=== PATIENT | female | born 1955 | race Caucasian/White ===

== ENCOUNTER → 2017-10-18 | Outpatient (CLI) | payer BC ==
--- NOTE | 2017-10-18 21:09 | CT ---
EXAMINATION TYPE: CT abdomen pelvis wo/w con DATE OF EXAM: 10/18/2017 HISTORY: Colon mass. Recent colonscopy CT DLP: 2357.7mGycm Automated Exposure Control for Dose Reduction was Utilized. CONTRAST: CT scan of the abdomen and pelvis is performed without and with IV Contrast, patient injected with 10 0 mL of Isovue 300. COMPARISON: None. FINDINGS: LUNG BASES: There is minimal bibasilar subsegmental atelectasis. LIVER/GB: Liver enhances homogeneously without appreciable mass or intrahepatic biliary ductal dilata tion. No cholelithiasis.. PANCREAS: No significant abnormality is seen. No ductal dilatation is seen within the pancreas. SPLEEN: No significant abnormality is seen. Small splenule seen adjacent to the lumbee spleen. ADRENALS: Adrenal glands are symmetric without nodularity or thickening. KIDNEYS: Kidneys enhance and excrete symmetrically without hydronephrosis or focal mass. BOWEL: Within the splenic flexure there is focal bowel wall thickening and hyperemia with pericolonic fat stranding and engorgement of the vasa recta. Additionally there is an abnormal 7 mm lymph node o n series 5 image 30. Evaluation of the bowel somewhat limited given lack of oral contrast. Moderate a mount retained colonic stool is seen throughout the remainder the proximal bowel. Distal colon includ ing the descending colon and sigmoid colon are decompressed. No proximal dilatation to suggest obstru ction. No current evidence of pneumoperitoneum. Appendix is air-filled and within normal limits. No s mall bowel dilatation. UTERUS/ADNEXA: No gross abnormality seen. LYMPH NODES: No greater than 1cm abdominal or pelvic lymph nodes are appreciated. An 7 mm abnormal ly mph node adjacent to the splenic flexure as described above. OSSEOUS STRUCTURES: Vertebral body hemangiomas are seen at T12, L2 and L3. Probable bone islands are seen within the left iliac wing and sacrum that are subcentimeter sclerotic foci in series 5 image 67 . Additional probable bone island within the right superior acetabulum is seen in series 5 image 80. Lastly probable sclerotic punctate bone island is seen within the superior endplate of L2. OTHER: Moderate calcific atheromatous changes are seen in the abdominal aorta and its branches. Very small fat filled left inguinal hernia is noted.. IMPRESSION: 1. Focal bowel wall thickening and pericolonic inflammatory change at the splenic flexure with distal colonic decompression. This site is presumed to represent the patient's primary neoplasm. There is n o proximal obstruction. Suspicious adjacent 7 mm prominent lymph node is seen. Otherwise there is no evidence of visceral metastasis. 2. Multiple punctate sclerotic foci likely represent benign bone islands. If any prior imaging is sadie ilable at an outside institution for comparison of stability addendum could be performed.
== END ==
LOC: RADCTMAIN 17:50
PROVIDERS: ATTEND Family Medicine
DX: R19.09 Other intra-abdominal and pelvic swelling, mass and lump (principal)
CPT/HCPCS: 74178; Q9967

== ENCOUNTER → 2018-01-17 | Outpatient (CLI) | payer BC ==
--- NOTE | 2018-01-17 16:09 | US ---
EXAMINATION TYPE: US venous doppler duplex LE LT DATE OF EXAM: 01/17/2018 3:45 PM COMPARISON: NONE CLINICAL HISTORY: 62-year-old female Left lower extremity swelling R22.42; on chemotherapy SIDE PERFORMED: left TECHNIQUE: The lower extremity deep venous system is examined utilizing real time linear array sonog ann with graded compression, doppler sonography and color-flow sonography. FINDINGS: VESSELS IMAGED: Common Femoral Vein Deep Femoral Vein Greater Saphenous Vein * Femoral Vein Popliteal Vein Small Saphenous Vein * Proximal Calf Veins (* superficial vessels) Left Leg: Negative for DVT Tech findings called to Postpartum Nurse at Dr Morrow's Office at exam's end.JJ IMPRESSION: No evidence for DVT within the left lower extremity imaged from the groin into the upper calf. Target ed scanning along the anterior thigh shows no discrete abnormality of the superficial tissues.
== END | disposition home or self-care (01) ==
LOC: RADUSWWP 15:22
PROVIDERS: ATTEND Internal Medicine Hematology & Oncology
DX: R22.42 Localized swelling, mass and lump, left lower limb (principal)

== ENCOUNTER → 2018-04-24 | Outpatient (CLI) | payer BC ==
--- NOTE | 2018-04-24 16:41 | MR ---
EXAMINATION TYPE: MR brain wo/w con DATE OF EXAM: 04/24/2018 COMPARISON: HISTORY: SALAS,Dizziness, vision changes CONTRAST: Performed utilizing 7.5 mL intravenous Gadavist gadolinium contrast. TECHNIQUE: Multiplanar, multiecho imaging on a 3.0 Cha magnet is performed through the brain. Stud y is performed within 24 hours of arrival to the hospital. The craniovertebral junction is normal. The pituitary is normal. Diffusion-weighted imaging is performed. No abnormal hyperintensity is present to suggest an acute i ntracranial infarct or acute ischemic change. Periventricular white matter hyperintensity is present on T2 and inversion recovery weighted sequence s. Findings are nonspecific but likely related to chronic white matter ischemic type changes. No abno rmal enhancement is evident. No corresponding abnormality on diffusion is evident through these regio ns. This would suggest the white matter changes or old.. Ventricles and sulci are appropriate for the patient age. There is some mild mucosal thickening throu gh the ethmoid air cells. IMPRESSIONS: 1. Chronic white matter ischemic type changes.
== END | disposition home or self-care (01) ==
LOC: RADMRIMAIN 10:35
PROVIDERS: ATTEND Internal Medicine Hematology & Oncology
DX: I67.82 Cerebral ischemia (principal)
CPT/HCPCS: 70553; A9585

== ENCOUNTER → 2018-05-27 | Outpatient (CLI) | payer BC ==
[2018-05-27 16:11] LABS: Blood Urea Nitrogen 11 mg/dL (7-17)
--- NOTE | 2018-05-28 10:54 | CT ---
EXAMINATION TYPE: CT ChestAbdPelvis w con DATE OF EXAM: 05/27/2018 INDICATION: Follow up for colon cancer. COMPARISON: 10/18/2017 CT DLP: 1918 mGycm CONTRAST: Performed with Oral Contrast and with IV Contrast, patient injected with 100ml mL of Isovue M300. TECHNIQUE: Axial images at 5 mm thick sections. Reconstructed images in the coronal plane. Delayed images through the kidneys. FINDINGS: CT CHEST: Thyroid is enlarged and contains several hypodense areas. This could be evaluated with ultrasound. No suspicious lung nodules or focal infiltrates are present. Multiple small shotty lymph nodes are pr esent. No enlarged mediastinal or hilar adenopathy is evident. The ascending aorta diameter at the level of the main pulmonary artery is 3.3 cm. The main pulmonary artery diameter at the bifurcation is 2.[address] ABDOMEN: Liver: There is mild fatty infiltration liver. No discrete masses or cysts are evident. Spleen: Spleen is slightly enlarged at 12.8 cm. Normal less than 12.5 cm. Small splenule medial to th e posterior spleen. Pancreas: Normal Adrenal glands: The adrenal glands are normal. Gallbladder: Normal Kidneys: No masses are evident. No hydronephrosis is present. No cysts are present. Delayed images were obtained through the kidneys, which remain unremarkable. Aorta: Vascular calcification is within the aorta. Inferior vena cava: Normal. CT PELVIS: Loops of bowel within the abdomen and pelvis are normal. There are loops of bowel which are incom pletely distended or lack oral contrast limiting their evaluation. Fecal debris is within the colon. Appendix: Normal as visualized. Urinary bladder: Partially decompressed with some limitation on evaluation. Genitourinary structures: Uterus is unremarkable. Adnexal regions are clear. No free fluid is within the pelvis. Osseous structures: No suspicious lytic or sclerotic lesions. IMPRESSIONS: 1. Mild splenomegaly. 2. Multinodular goiter. This could be further evaluated with ultrasound. 3. Mild fatty infiltration liver. 4. No suspicious changes to suggest recurrent or metastatic colon cancer.
== END | disposition home or self-care (01) ==
LOC: RADCTMAIN 15:35
PROVIDERS: ATTEND Internal Medicine Hematology & Oncology
DX: C18.6 Malignant neoplasm of descending colon (principal); R16.1 Splenomegaly, not elsewhere classified; E04.2 Nontoxic multinodular goiter
CPT/HCPCS: 82565; 84520; 71260; 74177; 36415; Q9967

== ENCOUNTER → 2018-08-20 | Outpatient (CLI) | payer BC ==
--- NOTE | 2018-08-20 11:46 | CT ---
EXAMINATION TYPE: CT ChestAbdPelvis w con DATE OF EXAM: 08/20/2018 COMPARISON: Prior CTs May 27, [address] October 18, 2017. HISTORY: Cancer of Descending Colon progress study. Completed chemotherapy May 2019. CT DLP: 1851 mGycm. Automated Exposure Control for Dose Reduction was Utilized. CONTRAST: CT scan of the thorax, abdomen and pelvis is performed with oral and with IV Contrast, patient inject ed with 100 mL of Isovue 300. FINDINGS: LUNGS: Bilateral infrahilar groundglass opacity remains present. No suspicious nodules or masses are identified. No pleural effusion or pneumothorax is seen. MEDIASTINUM: There are no greater than 1 cm hilar or mediastinal lymph nodes. No pericardial effusi on is seen. Cardiac silhouette size is stable and mildly enlarged. Thyroid gland remains prominent a nd heterogeneous with several small nodules redemonstrated. Coronary artery calcification is redemons trated which is noted marked for underlying coronary artery disease. OTHER: There is stable right subclavian Mediport catheter. LIVER/GB: Liver remains hypodense relative to spleen suggesting mild diffuse fatty infiltration. PANCREAS: No significant abnormality is seen. SPLEEN: Spleen is mildly enlarged at 14.2 cm long axis axial image 51 perhaps slightly larger from pr ior studies.. ADRENALS: No significant abnormality is seen. KIDNEYS: No significant abnormality is seen. BOWEL: Evaluation bowel is suboptimal as enteric contrast only reaches proximal ileal level in the ri ght abdomen. There is no suspicious small or large bowel dilatation. There is slight redundancy of th e sigmoid colon redemonstrated. Surgical sutures near level of splenic flexure are again seen. GENITAL ORGANS: Anteverted uterus extends to right of midline. Both ovaries are normal in size LYMPH NODES: No greater than 1cm abdominal or pelvic lymph nodes are appreciated. OSSEOUS STRUCTURES: There is suspected hemangioma right L2 level coronal image 51 felt stable. There is mild multilevel spurring in the thoracic spine redemonstrated. OTHER: No significant additional abnormality is seen. IMPRESSION: 1. No suspicious new masses or adenopathy to suggest neoplastic recurrence. 2. Redemonstration of mild cardiomegaly with mild central alveolar edema. Correlate for CHF exacerba tion. Edema related to treatment changes in differential. 3. Slightly more prominent splenomegaly noted and may reflect product of treatment.
== END | disposition home or self-care (01) ==
LOC: RADCTMAIN 07:47
PROVIDERS: ATTEND Internal Medicine Hematology & Oncology
DX: C18.6 Malignant neoplasm of descending colon (principal); I51.7 Cardiomegaly; I50.1 Left ventricular failure, unspecified; R16.1 Splenomegaly, not elsewhere classified; Z91.040 Latex allergy status
CPT/HCPCS: 71260; 74177; Q9967

== ENCOUNTER 2018-09-02 00:31 | Inpatient (IN) | payer BC ==
[2018-09-02 00:56] LABS: Glucose,Whole Blood 535 mg/dL (75-99)
[2018-09-02] MEDS ORDERED: SODIUM CHLORIDE 0.9% 1,000 ML IV ONE ×2 (01:19→01:29)
[2018-09-02] MEDS ORDERED: INSULIN REGULAR 100 UNIT/ML VIAL IV STA (01:19)
[2018-09-02 01:36] LABS: Basophils % (A) 1 %; Eosinophils # (A) 0.1 k/uL (0-0.7); Eosinophils % (A) 2 %; HCT 34.9 % (34.0-46.0); HGB 11.1 gm/dL (11.4-16.0); Hypochromasia Slight; Lymphocytes % (A) 21 %; MCH 28.7 pg (25.0-35.0); MCHC 31.7 g/dL (31.0-37.0); MCV 90.4 fL (80.0-100.0); Mean Platelet Volume 7.7; Monocytes # (A) 0.3 k/uL (0-1.0); Monocytes % (A) 6 %; Neutrophils # (A) 3.3 k/uL (1.3-7.7); Neutrophils % (A) 69 %; Platelet Count 126 k/uL (150-450); RBC 3.86 m/uL (3.80-5.40); RDW 15.3 % (11.5-15.5); WBC 4.8 k/uL (3.8-10.6)
--- NOTE | 2018-09-02 01:38 | XR ---
EXAM: XR Chest, 1 View CLINICAL HISTORY: altered mental status TECHNIQUE: Frontal view of the chest. COMPARISON: No relevant prior studies available. FINDINGS: Lungs: Mild diffuse interstitial opacities in both lungs which are underinflated. Pleural space: Unremarkable. No pneumothorax. Heart: Unremarkable. No cardiomegaly. Mediastinum: Unremarkable. Bones/joints: Unremarkable. Tubes, lines and devices: Tip of right MediPort projects over the region of superior vena cava at the level of the daniella. IMPRESSION: Lung findings can be due to underinflation versus mild pulmonary edema.
[2018-09-02 01:46] LABS: ALT 38 U/L (9-52); AST 29 U/L (14-36); Albumin 3.2 g/dL (3.5-5.0); Alkaline Phosphatase 167 U/L (38-126); Anion Gap 7 mmol/L; Blood Urea Nitrogen 16 mg/dL (7-17); Calcium 8.8 mg/dL (8.4-10.2); Carbon Dioxide 25 mmol/L (22-30); Chloride 107 mmol/L (98-107); Potassium 3.5 mmol/L (3.5-5.1); Sodium 139 mmol/L (137-145); Total Bilirubin 0.7 mg/dL (0.2-1.3); Total Protein 6.1 g/dL (6.3-8.2)
[2018-09-02 01:53] LABS: Glucose 544 mg/dL (74-99)
[2018-09-02 01:54] LABS: Partial Thromboplastin Time 22.1 sec (22.0-30.0); Prothrombin Time 10.3 sec (9.0-12.0)
[2018-09-02 02:42] LABS: Glucose,Whole Blood 366 mg/dL (75-99)
[2018-09-02 03:19] LABS: Appearance,Urine Clear (Clear); Bilirubin,Urine Negative (Negative); Blood,Urine Negative (Negative); Color,Urine Light Yellow; Glucose,Urine (UA) 4+ (Negative); Ketones,Urine Negative (Negative); Leukocyte Esterase,Urine Negative (Negative); Nitrite,Urine Negative (Negative); Protein,Urine Negative (Negative); Specific Gravity,Urine 1.022 (1.001-1.035); Urobilinogen,Urine <2.0 mg/dL (<2.0)
--- NOTE | 2018-09-02 03:36 | ED ---
Weakness HPI - General Chief complaint: Weakness Stated complaint: hypoglycemia Time Seen by Provider: 09/02/18 00:55 Source: patient Mode of arrival: EMS Limitations: no limitations - History of Present Illness Initial comments: This patient is 63-year-old woman with history of lung cancer who is brought by ambulance to be evaluated for generalized weakness and fatigue. The patient has been feeling somewhat more weak and fatigue over the past couple of days but tonight she had gone to the bathroom. She then had slumped to the floor and did not have the strength to get up. Patient's family called EMS and they brought the patient here to be evaluated. She denies focal weakness stating that it's both legs as well as the arms. She denies having a fall or injury. Denies other symptoms. MD Complaint: generalized weakness Onset/Timin -: hour(s) Location: generalized Severity: severe Consistency: constant Improves with: none Worsens with: none Associated Symptoms: denies other symptoms - Related Data Home Medications Medication Instructions Recorded Confirmed Cyclobenzaprine [Flexeril] 10 mg PO HS 12/24/17 05/13/18 Docusate Sodium [Dok] 100 mg PO DIRECTED 12/24/17 05/13/18 FLUoxetine HCL [PROzac] 20 mg PO DAILY 12/24/17 05/13/18 Fenofibrate 160 mg PO DAILY 12/24/17 05/13/18 Ferrous Sulfate [Feosol] 325 mg PO DAILY 12/24/17 05/13/18 LORazepam [Ativan] 0.5 mg PO HS 12/24/17 05/13/18 Lidocaine-Prilocaine Cream [Emla 1 applic TOPICAL DAILY 12/24/17 05/13/18 Cream 2.5%/2.5%] Lisinopril [Zestril] 10 mg PO DAILY 12/24/17 05/13/18 Ondansetron [Zofran] 4 mg PO Q8HR PRN 12/24/17 05/13/18 Pravastatin Sodium 80 mg PO DAILY 12/24/17 05/13/18 Gabapentin [Neurontin] 300 mg PO BID 03/04/18 05/13/18 Lactulose 10 gm PO Q6HR PRN 03/18/18 05/13/18 Potassium Chloride [Klor-Con 20] 20 meq PO BID 04/01/18 05/13/18 Allergies Allergy/AdvReac Type Severity Reaction Status Date / Time latex Allergy Unknown Verified 09/02/18 07:29 Review of Systems ROS Statement: Those systems with pertinent positive or pertinent negative responses have been documented in the HPI. ROS Other: All systems not noted in ROS Statement are negative. Constitutional: Reports: weakness. Denies: fever, chills Respiratory: Denies: cough, dyspnea Cardiovascular: Denies: chest pain, palpitations, edema, syncope Gastrointestinal: Denies: abdominal pain, vomiting, diarrhea Genitourinary: Denies: dysuria, hematuria Musculoskeletal: Denies: back pain Skin: Denies: rash Neurological: Denies: headache, weakness, numbness Past Medical History Past Medical History: Cancer, Hyperlipidemia, Hypertension Additional Past Medical History / Comment(s): COLON CANCER History of Any Multi-Drug Resistant Organisms: None Reported Past Surgical History: Bowel Resection Additional Past Surgical History / Comment(s): COLONOSCOPY,COLON RESECTION Past Anesthesia/Blood Transfusion Reactions: No Reported Reaction Past Psychological History: Anxiety, Depression Smoking Status: Former smoker General Exam Limitations: no limitations General appearance: alert, in no apparent distress Head exam: Present: atraumatic, normocephalic Eye exam: Present: normal appearance. Absent: scleral icterus, conjunctival injection ENT exam: Present: mucous membranes dry Neck exam: Present: normal inspection, full ROM. Absent: tenderness Respiratory exam: Present: normal lung sounds bilaterally. Absent: respiratory distress, wheezes, rales, rhonchi, stridor Cardiovascular Exam: Present: regular rate, normal rhythm, normal heart sounds. Absent: systolic murmur, diastolic murmur, rubs, gallop GI/Abdominal exam: Present: soft. Absent: distended, tenderness, guarding, rebound, mass Extremities exam: Present: normal inspection, normal capillary refill. Absent: pedal edema, calf tenderness Back exam: Present: normal inspection. Absent: CVA tenderness (R), CVA tenderness (L) Neurological exam: Present: alert, oriented X3, CN II-XII intact. Absent: motor sensory deficit Skin exam: Present: warm, dry, intact, normal color. Absent: rash Course Vital Signs 09/02/18 09/02/18 09/02/18 00:36 00:37 00:40 Temperature 98.2 F Pulse Rate 90 92 Respiratory 24 16 29 H Rate Blood Pressure 148/71 148/71 O2 Sat by Pulse 94 L 94 L 97 Oximetry 09/02/18 09/02/18 09/02/18 02:50 03:10 03:40 Temperature Pulse Rate 89 87 90 Respiratory Rate Blood Pressure 179/80 165/71 158/63 O2 Sat by Pulse 96 97 95 Oximetry 09/02/18 09/02/18 09/02/18 04:10 04:40 05:30 Temperature Pulse Rate 93 93 91 Respiratory Rate Blood Pressure 152/68 156/70 O2 Sat by Pulse 95 Oximetry 09/02/18 09/02/18 05:40 06:10 Temperature 98.1 F Pulse Rate 94 89 Respiratory 16 Rate Blood Pressure 161/75 153/80 O2 Sat by Pulse Oximetry EKG Findings - EKG Results: EKG: interpreted by ERMD, sinus rhythm (Rate 88 bpm), normal axis - Blocks, [place], Hypertrophy, ST Abn: Chamber hypertrophy or enlargement: left ventricular hypertrophy or enlargement (LVE) Repolarization changes or abnormalities: Q-T interval prolongation Medical Decision Making - Medical Decision Making This patient is a 63-year-old woman with generalized weakness and fatigue. She is found to be significantly hyperglycemic and somewhat dry. Patient is given fluid and insulin. On reevaluation she does states she is feeling better and she does want to go home however the patient is still not able to support her weight. We'll admit the patient to have further therapy for hyperglycemia and for the generalized weakness. - Lab Data Result diagrams: 09/02/18 00:55 09/02/18 00:55 Lab Results 09/02/18 09/02/18 09/02/18 Range/Units 00:53 00:55 00:55 WBC 4.8 (3.8-10.6) k/uL RBC 3.86 (3.80-5.40) m/uL Hgb 11.1 L (11.4-16.0) gm/dL Hct 34.9 (34.0-46.0) % MCV 90.4 (80.0-100.0) fL MCH 28.7 (25.0-35.0) pg MCHC 31.7 (31.0-37.0) g/dL RDW 15.3 (11.5-15.5) % Plt Count 126 L (150-450) k/uL Neutrophils % 69 % Lymphocytes % 21 % Monocytes % 6 % Eosinophils % 2 % Basophils % 1 % Neutrophils # 3.3 (1.3-7.7) k/uL Lymphocytes # 1.0 (1.0-4.8) k/uL Monocytes # 0.3 (0-1.0) k/uL Eosinophils # 0.1 (0-0.7) k/uL Basophils # 0.0 (0-0.2) k/uL Hypochromasia Slight PT (9.0-12.0) sec INR (<1.2) APTT (22.0-30.0) sec Sodium (137-145) mmol/L Potassium (3.5-5.1) mmol/L Chloride (98-107) mmol/L Carbon Dioxide (22-30) mmol/L Anion Gap mmol/L BUN (7-17) mg/dL Creatinine (0.52-1.04) mg/dL Est GFR (CKD-EPI)AfAm (>60 ml/min/1.73 sqM) Est GFR (CKD-EPI)NonAf (>60 ml/min/1.73 sqM) Glucose (74-99) mg/dL POC Glucose (mg/dL) 535 H (75-99) mg/dL POC Glu Open Tenter Operator ID Frederick Marques Calcium (8.4-10.2) mg/dL Total Bilirubin (0.2-1.3) mg/dL AST (14-36) U/L ALT (9-52) U/L Alkaline Phosphatase (38-126) U/L Troponin I (0.000-0.034) ng/mL Total Protein (6.3-8.2) g/dL Albumin (3.5-5.0) g/dL Urine Color Urine Appearance (Clear) Urine pH (5.0-8.0) Ur Specific [place] (1.001-1.035) Urine Protein (Negative) Urine Glucose (UA) (Negative) Urine Ketones (Negative) Urine Blood (Negative) Urine Nitrite (Negative) Urine Bilirubin (Negative) Urine Urobilinogen (<2.0) mg/dL Ur Leukocyte Esterase (Negative) Acetone, Qual Negative (Negative) 09/02/18 09/02/18 09/02/18 Range/Units 00:55 00:55 00:55 WBC (3.8-10.6) k/uL RBC (3.80-5.40) m/uL Hgb (11.4-16.0) gm/dL Hct (34.0-46.0) % MCV (80.0-100.0) fL MCH (25.0-35.0) pg MCHC (31.0-37.0) g/dL RDW (11.5-15.5) % Plt Count (150-450) k/uL Neutrophils % % Lymphocytes % % Monocytes % % Eosinophils % % Basophils % % Neutrophils # (1.3-7.7) k/uL Lymphocytes # (1.0-4.8) k/uL Monocytes # (0-1.0) k/uL Eosinophils # (0-0.7) k/uL Basophils # (0-0.2) k/uL Hypochromasia PT 10.3 (9.0-12.0) sec INR 1.0 (<1.2) APTT 22.1 (22.0-30.0) sec Sodium 139 (137-145) mmol/L Potassium 3.5 (3.5-5.1) mmol/L Chloride 107 (98-107) mmol/L Carbon Dioxide 25 (22-30) mmol/L Anion Gap 7 mmol/L BUN 16 (7-17) mg/dL Creatinine 0.35 L (0.52-1.04) mg/dL Est GFR (CKD-EPI)AfAm >90 (>60 ml/min/1.73 sqM) Est GFR (CKD-EPI)NonAf >90 (>60 ml/min/1.73 sqM) Glucose 544 H* (74-99) mg/dL POC Glucose (mg/dL) (75-99) mg/dL POC Glu Open Tenter Operator ID Calcium 8.8 (8.4-10.2) mg/dL Total Bilirubin 0.7 (0.2-1.3) mg/dL AST 29 (14-36) U/L ALT 38 (9-52) U/L Alkaline Phosphatase 167 H (38-126) U/L Troponin I <0.012 (0.000-0.034) ng/mL Total Protein 6.1 L (6.3-8.2) g/dL Albumin 3.2 L (3.5-5.0) g/dL Urine Color Urine Appearance (Clear) Urine pH (5.0-8.0) Ur Specific [place] (1.001-1.035) Urine Protein (Negative) Urine Glucose (UA) (Negative) Urine Ketones (Negative) Urine Blood (Negative) Urine Nitrite (Negative) Urine Bilirubin (Negative) Urine Urobilinogen (<2.0) mg/dL Ur Leukocyte Esterase (Negative) Acetone, Qual (Negative) 09/02/18 09/02/18 09/02/18 Range/Units 02:40 02:59 05:57 WBC (3.8-10.6) k/uL RBC (3.80-5.40) m/uL Hgb (11.4-16.0) gm/dL Hct (34.0-46.0) % MCV (80.0-100.0) fL MCH (25.0-35.0) pg MCHC (31.0-37.0) g/dL RDW (11.5-15.5) % Plt Count (150-450) k/uL Neutrophils % % Lymphocytes % % Monocytes % % Eosinophils % % Basophils % % Neutrophils # (1.3-7.7) k/uL Lymphocytes # (1.0-4.8) k/uL Monocytes # (0-1.0) k/uL Eosinophils # (0-0.7) k/uL Basophils # (0-0.2) k/uL Hypochromasia PT (9.0-12.0) sec INR (<1.2) APTT (22.0-30.0) sec Sodium (137-145) mmol/L Potassium (3.5-5.1) mmol/L Chloride (98-107) mmol/L Carbon Dioxide (22-30) mmol/L Anion Gap mmol/L BUN (7-17) mg/dL Creatinine (0.52-1.04) mg/dL Est GFR (CKD-EPI)AfAm (>60 ml/min/1.73 sqM) Est GFR (CKD-EPI)NonAf (>60 ml/min/1.73 sqM) Glucose (74-99) mg/dL POC Glucose (mg/dL) 366 H 324 H (75-99) mg/dL POC Glu Open Tenter Operator Frederick Cherry Emily Calcium (8.4-10.2) mg/dL Total Bilirubin (0.2-1.3) mg/dL AST (14-36) U/L ALT (9-52) U/L Alkaline Phosphatase (38-126) U/L Troponin I (0.000-0.034) ng/mL Total Protein (6.3-8.2) g/dL Albumin (3.5-5.0) g/dL Urine Color Light Yellow Urine Appearance Clear (Clear) Urine pH 7.0 (5.0-8.0) Ur Specific [place] 1.022 (1.001-1.035) Urine Protein Negative (Negative) Urine Glucose (UA) 4+ H (Negative) Urine Ketones Negative (Negative) Urine Blood Negative (Negative) Urine Nitrite Negative (Negative) Urine Bilirubin Negative (Negative) Urine Urobilinogen <2.0 (<2.0) mg/dL Ur Leukocyte Esterase Negative (Negative) Acetone, Qual (Negative) Disposition Clinical Impression: Hyperglycemia, Weakness Disposition: HOME SELF-CARE Condition: Fair Is patient prescribed a controlled substance at d/c from ED?: No Referrals: Aguilar Novak MD [Primary Care Provider] - 1-2 days
[2018-09-02 05:58] LABS: Glucose,Whole Blood 324 mg/dL (75-99)
[2018-09-02] MEDS ORDERED: NALOXONE 0.4 MG/ML 1 ML VIAL IV PRN (07:22)
[2018-09-02] MEDS ORDERED: LACTULOSE 20 GM/30 ML CUP PO PRN (07:25)
[2018-09-02] MEDS ORDERED: ONDANSETRON 4 MG TAB PO PRN (07:25)
[2018-09-02 08:51] LABS: Glucose,Whole Blood 275 mg/dL (75-99)
[2018-09-02] MEDS ORDERED: DOCUSATE 100 MG CAP PO PRN (09:00)
[2018-09-02 09:52] VITALS: BMI 35.6
[2018-09-02] MEDS: SODIUM CHLORIDE 0.9% 1,000 ML IV SCH ×2 (10:14→22:32)
[2018-09-02] MEDS: FENOFIBRATE 160 MG TAB PO SCH (11:06)
[2018-09-02] MEDS: FLUoxetine HCL 20 MG CAP PO SCH (11:06)
[2018-09-02] MEDS: LISINOPRIL 10 MG TAB PO SCH (11:07)
[2018-09-02] MEDS: PRAVASTATIN SODIUM 80 MG TAB PO SCH (11:07)
[2018-09-02] MEDS: POTASSIUM CHLORIDE ER 20 MEQ TAB.ER PO SCH ×2 (11:07→21:27)
[2018-09-02] MEDS: FERROUS SULFATE 325 MG TAB PO SCH (11:07)
[2018-09-02] MEDS: GABAPENTIN 300 MG CAP PO SCH ×2 (11:13→21:27)
[2018-09-02 11:29] LABS: Glucose,Whole Blood 296 mg/dL (75-99)
[2018-09-02 17:37] LABS: Glucose,Whole Blood 407 mg/dL (75-99)
[2018-09-02 20:57] LABS: Glucose,Whole Blood 328 mg/dL (75-99)
[2018-09-02] MEDS ORDERED: metFORMIN 500 MG TAB PO SCH (21:00)
[2018-09-02] MEDS: LORazepam 0.5 MG TAB PO SCH (21:27)
[2018-09-02] MEDS ORDERED: LACTATED RINGERS 1,000 ML IV SCH (22:15)
[2018-09-02] MEDS: CYCLOBENZAPRINE 10 MG TAB PO SCH (22:33)
[2018-09-02] MEDS: ENOXAPARIN 40 MG/0.4 ML SYRINGE SQ SCH (22:34)
--- NOTE | 2018-09-02 23:54 | P.CONS ---
History of Present Illness - Reason for Consult Consult date: 09/02/18 colon cancer Requesting physician: Pop Miner - Chief Complaint Weakness and inability to stand after fall - History of Present Illness Niko is a patient of Dr. Larson treated for colon cancer. Underwent left hemicolectomy in october of 2017. Review of Systems A 14 point review of systems assessed and completed and all negative except HPI Past Medical History Past Medical History: Cancer, Diabetes Mellitus, Hyperlipidemia, Hypertension Additional Past Medical History / Comment(s): Colon cancer with surgery and chemo, diabetic-diet controlled, neuropathy bilateral hands/feet, chronic lower abdominal pain-cause unknown, frequent nausea, constipation, anemia. History of Any Multi-Drug Resistant Organisms: None Reported Past Surgical History: Bowel Resection Additional Past Surgical History / Comment(s): COLONOSCOPY,COLON RESECTION Past Anesthesia/Blood Transfusion Reactions: No Reported Reaction Smoking Status: Former smoker - Past Family History Father Family Medical History: Diabetes Mellitus Additional Family Medical History / Comment(s): Father of diabetic complications at the age of 40 yrs. Mother Family Medical History: Diabetes Mellitus Additional Family Medical History / Comment(s): Mother from gangrene/diabetes at the age of 85yrs. Medications and Allergies Home Medications Medication Instructions Recorded Confirmed Type Docusate Sodium [Dok] 100 mg PO DAILY 12/24/17 09/02/18 History FLUoxetine HCL [PROzac] 60 mg PO DAILY 12/24/17 09/02/18 History Fenofibrate 160 mg PO DAILY 12/24/17 09/02/18 History Lidocaine-Prilocaine Cream [Emla 1 applic TOPICAL DAILY PRN 12/24/17 09/02/18 History Cream 2.5%/2.5%] Pravastatin Sodium 80 mg PO DAILY 12/24/17 09/02/18 History Aspirin 81 mg PO DAILY 09/02/18 09/02/18 History Cariprazine HCl [Vraylar] 1.5 mg PO DAILY 09/02/18 09/02/18 History Acetaminophen Tab [Tylenol] 650 mg PO Q6HR PRN tab 09/05/18 Rx Ferrous Sulfate [Iron (65 MG 325 mg PO 1200 tab 09/05/18 Rx Elemental)] INSULIN ASPART (NovoLOG) [NovoLOG 0 unit SQ AC-TID vial 09/05/18 Rx (formulary)] Lisinopril-Hctz 10-12.5 mg 1 each PO BID tab 09/05/18 Rx [Zestoretic 10-12.5] Melatonin 5 mg PO HS #1 tablet 09/05/18 Rx Multivitamin [Multivitamins Adult 1 each PO DAILY #1 tablet 09/05/18 Rx Gummies] Pyridoxine [Vitamin B-6] 50 mg PO DAILY tab 09/05/18 Rx glipiZIDE [Glucotrol] 2.5 mg PO AC-BRKFST tab 09/05/18 Rx metFORMIN HCL [Glucophage] 1,000 mg PO BID #1 tab 09/05/18 Rx Allergies Allergy/AdvReac Type Severity Reaction Status Date / Time latex Allergy Unknown Verified 09/02/18 07:29 Physical Exam Vitals: Vital Signs Temp Pulse Pulse Resp BP BP Pulse Ox 09/02/18 10:55 98.4 F 80 16 159/74 94 L 09/02/18 10:12 97.9 F 86 18 159/74 98 09/02/18 08:25 97.9 F 93 18 167/93 96 09/02/18 06:10 98.1 F 89 16 153/80 09/02/18 05:40 94 161/75 09/02/18 05:30 91 09/02/18 04:40 93 156/70 09/02/18 04:10 93 152/68 95 09/02/18 03:40 90 158/63 95 09/02/18 03:10 87 165/71 97 09/02/18 02:50 89 179/80 96 09/02/18 00:40 29 H 148/71 97 09/02/18 00:37 98.2 F 92 16 148/71 94 L 09/02/18 00:36 90 24 94 L Intake and Output 09/01/18 09/02/18 09/02/18 22:59 06:59 14:59 Other: Voiding Method Incontinent Weight 97.069 kg Gen: Alert and oriented, NAD Head: NCNT Neck Supple Lungs: No increased effort, CTA Heart RRR, S1 Abdomen: Soft, no tenderness Ext: No edema: weakness. Results CBC & Chem 7: 09/02/18 00:55 09/02/18 00:55 Labs: Abnormal Lab Results - Last 24 Hours (Table) 09/02/18 09/02/18 09/02/18 Range/Units 00:53 00:55 00:55 Hgb 11.1 L (11.4-16.0) gm/dL Plt Count 126 L (150-450) k/uL Creatinine 0.35 L (0.52-1.04) mg/dL Glucose 544 H* (74-99) mg/dL POC Glucose (mg/dL) 535 H (75-99) mg/dL Alkaline Phosphatase 167 H (38-126) U/L Total Protein 6.1 L (6.3-8.2) g/dL Albumin 3.2 L (3.5-5.0) g/dL Urine Glucose (UA) (Negative) 09/02/18 09/02/18 09/02/18 Range/Units 02:40 02:59 05:57 Hgb (11.4-16.0) gm/dL Plt Count (150-450) k/uL Creatinine (0.52-1.04) mg/dL Glucose (74-99) mg/dL POC Glucose (mg/dL) 366 H 324 H (75-99) mg/dL Alkaline Phosphatase (38-126) U/L Total Protein (6.3-8.2) g/dL Albumin (3.5-5.0) g/dL Urine Glucose (UA) 4+ H (Negative) 09/02/18 09/02/18 Range/Units 08:33 11:26 Hgb (11.4-16.0) gm/dL Plt Count (150-450) k/uL Creatinine (0.52-1.04) mg/dL Glucose (74-99) mg/dL POC Glucose (mg/dL) 275 H 296 H (75-99) mg/dL Alkaline Phosphatase (38-126) U/L Total Protein (6.3-8.2) g/dL Albumin (3.5-5.0) g/dL Urine Glucose (UA) (Negative) Assessment and Plan Plan: Assessment and Recommendatins: 1. Weakness and Debility 2. Fall from Sitting, unable to stand 3. Left hand weakness: - PMR to assess patient with debility and weakness. No sensory deficit noted different from baseline. Will consider MRI if concern for recurrence or cord damage. Physcian Attest: I have completed the full history and physical and devloped the completed impression and plan, agree with above dictation, dictated as scribe
--- NOTE | 2018-09-03 00:34 | HP ---
HISTORY AND PHYSICAL DATE OF ADMISSION: 09/02/2018. PRESENTING COMPLAINT: Unwell. HISTORY OF PRESENTING COMPLAINT: This is a pleasant 62-year-old patient of Dr. Novak whose chronic stable medical conditions include hypertension, hyperlipidemia, and progressive peripheral neuropathy. The patient has had colon cancer and finished chemotherapy in May. Patient's has loss of feeling in both hands and feet, going on for 3 months. She finds it difficult to walk and sometimes she falls. Patient's appetite has been fluctuating. Sugars do run high sometimes. She takes a glucometer from a family member. She does get dizzy on standing up. She has also been losing some weight. The patient's sugar in the ER was over 500 and there was no acetone in the blood. She was admitted for the same. It is unclear from the patient why she is not taking any medication. REVIEW OF SYSTEMS: CONSTITUTIONAL: Tired, decreased appetite, weight loss. HEENT: None. RESPIRATORY: None. CARDIOVASCULAR: None. GASTROINTESTINAL: None. GENITOURINARY: None. MUSCULOSKELETAL: None. DERMATOLOGIC: None. HEMATOLOGICAL: None. NEUROLOGICAL: As above. PAST MEDICAL HISTORY: Diabetes mellitus, hypertension, hyperlipidemia, colon cancer with surgery and chemo, peripheral neuropathy, chronic low abdominal pain, nausea, constipation. PAST SURGICAL HISTORY: Bowel resection. PSYCH HISTORY: Anxiety and depression. SOCIAL HISTORY: . No alcohol. Smoked a pack a day for 37 years, stopped in 1917. No alcohol. FAMILY HISTORY: Father of diabetic complications at age of 40. HOME MEDICATIONS: 1. Pravastatin 80 mg p.o. daily. 2. Potassium 20 mEq p.o. b.i.d. 3. Zestril 10 mg a day. 4. EMLA cream 2.5 percent topical daily p.r.n. 5. Lactulose 10 g p.o. every 6 p.r.n. 6. Ativan 0.5 p.o. at bedtime. 7. Neurontin 200 mg p.o. b.i.d. 8. Flonase 2 sprays each nostril daily. 9. Bessy 180 mg p.o. daily. 10.Fenofibrate 160 mg p.o. daily. 11.Prozac 60 mg p.o. daily. 12.Colace 100 mg p.o. daily. 13.Vraylar 1.5 mg p.o. daily. 14.Aspirin 81 mg p.o. daily. ALLERGIES: LATEX. PHYSICAL EXAMINATION: VITAL SIGNS: On presentation, 98.2, pulse 72, respirations 16, blood pressure 148/71, pulse ox 94 percent on 2 L. APPEARANCE: Well built, BMI 35.6. Lying in bed, awake. EYES: Pupils equal. Conjunctivae normal. HEENT: External appearance of nose is normal. Oral cavity normal. NECK: JVD not raised. Mass not palpable. Respiratory effort normal. LUNGS: Fair air entry. CARDIOVASCULAR: First and second sounds normal. No edema. ABDOMEN: Soft, nontender. Liver and spleen not palpable. LYMPHATIC: No lymph node palpable. PSYCHIATRY: Alert and oriented x3. Mood and affect normal. NEUROLOGICAL: Pupils equal. Power and sensation grossly intact. Decreased sensation in the hands and below the knee to the feet. INVESTIGATIONS: White count 4.8, hemoglobin 11.1, potassium 3.5, BUN 16, creatinine 0.35, blood glucose was 544. Troponin less than 0.012. UA showing 4+ of glucose. Serum acetone is negative. EKG tracing personally reviewed by me shows some ST depression in inferolateral leads. Chest x-ray film personally reviewed by me, a portable film, unclear about the basis. ASSESSMENT: 1. Severe peripheral neuropathy causing poor balance and frequent falls, probably from uncontrolled diabetes. 2. Diabetes mellitus type 2, uncontrolled with hyperglycemia. 3. Hyperlipidemia. 4. Essential hypertension. 5. History of colon cancer status post chemo and surgery. 6. Diabetic peripheral neuropathy. PLAN: At this point, started the patient on metformin 500 mg 3 times a day. We will get diabetic education. Start the patient on diabetic diet. Also add glyburide 2.5 mg b.i.d. We will also get PT, OT to see what is patient's functional status. Repeat chest x-ray. Patient is already on GUSTABO inhibitor and lipid-lowering agent. Will add baby aspirin. Repeat a chest x-ray in the morning and get a 2-D echocardiogram. Expect patient to be in the hospital at least for 2 nights. MMTANYA / MARLEYN: [id number] /
[2018-09-03 02:05] LABS: Glucose,Whole Blood 212 mg/dL (75-99)
[2018-09-03 05:08] LABS: Glucose,Whole Blood 166 mg/dL (75-99)
[2018-09-03 06:59] LABS: Glucose,Whole Blood 199 mg/dL (75-99)
[2018-09-03] MEDS: metFORMIN 500 MG TAB PO SCH ×3 (07:59→17:26)
[2018-09-03] MEDS: PRAVASTATIN SODIUM 80 MG TAB PO SCH (07:59)
[2018-09-03] MEDS: POTASSIUM CHLORIDE ER 20 MEQ TAB.ER PO SCH ×2 (07:59→20:32)
[2018-09-03] MEDS: LISINOPRIL 10 MG TAB PO SCH (07:59)
[2018-09-03] MEDS: PYRIDOXINE 50 MG TAB PO SCH (07:59)
[2018-09-03] MEDS: INSULIN ASPART (NovoLOG) 100 UNIT/ML VIAL SQ SCH ×3 (07:59→17:26)
[2018-09-03] MEDS: FENOFIBRATE 160 MG TAB PO SCH (07:59)
[2018-09-03] MEDS: FLUoxetine HCL 20 MG CAP PO SCH (07:59)
--- NOTE | 2018-09-03 10:06 | XR ---
EXAMINATION TYPE: XR chest 2V DATE OF EXAM: 09/03/2018 COMPARISON: 08/20/2018 and 09/02/2018 HISTORY: Weakness TECHNIQUE: Frontal and lateral views of the chest are obtained. FINDINGS: Mild pulmonary vascular prominence unchanged from prior. No focal consolidation, pleural e ffusion or pneumothorax. Cardia mediastinal silhouette is mildly enlarged. Osseous structures are marquis ssly intact. Right-sided Mediport terminates in the superior vena cava at its distal aspect. Minimal degenerative changes of the thoracic spine are seen. IMPRESSION: There is redemonstration of similar degree of mild pulmonary vascular congestion. No foc al consolidation.
[2018-09-03 11:48] LABS: Glucose,Whole Blood 167 mg/dL (75-99)
[2018-09-03] MEDS: FERROUS SULFATE 325 MG TAB PO SCH (12:07)
--- NOTE | 2018-09-03 12:09 | ECHOF ---
Referral Reason:assess LV fn MEASUREMENTS -------- HEIGHT: 165.1 cm WEIGHT: 78.9 kg BP: RVIDd: 2.4 cm (< 3.3) IVSd: 1.4 cm (0.6 - 1.1) LVIDd: 4.5 cm (3.9 - 5.3) LVPWd: 1.6 cm (0.6 - 1.1) IVSs: 2.0 cm LVIDs: 2.1 cm LVPWs: 2.0 cm LAESV Index (A-L): 23.31 ml/m Ao Diam: 3.3 cm (2.0 - 3.7) AV Cusp: 2.0 cm (1.5 - 2.6) LA Diam: 3.8 cm (2.7 - 3.8) MV EXCURSION: 15.965 mm (> 18.000) MV EF SLOPE: 41 mm/s (70 - 150) EPSS: 0.5 cm MV E Oswaldo: 1.13 m/s MV DecT: 151 ms MV A Oswaldo: 1.54 m/s MV E/A Ratio: 0.74 AV maxP.51 mmHg AV meanP.42 mmHg RAP: 5.00 mmHg RVSP: 16.94 mmHg FINDINGS -------- Sinus rhythm. This was a technically good study. The left ventricular size is normal. There is moderate concentric left ventricular hypertrophy. O verall left ventricular systolic function is normal with, an EF between 55 - 60 %. The right ventricle is normal in size. Normal LA size by volume 22+/-6 ml/m2. The right atrial size is normal. Aortic valve is trileaflet and is mildly thickened. The mitral valve leaflets are mildly thickened. [id number] mitral regurgitation is present. Mild tricuspid regurgitation present. The right ventricular systolic pressure, as measured by Doppl er, is 16.94mmHg. There is no pulmonic regurgitation present. The aortic root size is normal. Normal inferior vena cava with normal inspiratory collapse consistent with estimated right atrial pre ssure of 5 mmHg. There is no pericardial effusion. CONCLUSIONS -------- 1. Sinus rhythm. 2. This was a technically good study. 3. The left ventricular size is normal. 4. There is moderate concentric left ventricular hypertrophy. 5. Overall left ventricular systolic function is normal with, an EF between 55 - 60 %. 6. The right ventricle is normal in size. 7. Normal LA size by volume 22+/-6 ml/m2. 8. The right atrial size is normal. 9. Aortic valve is trileaflet and is mildly thickened. 10. The mitral valve leaflets are mildly thickened. 11. Mhxj-st-dgutkjcn mitral regurgitation is present. 12. Mild tricuspid regurgitation present. 13. The right ventricular systolic pressure, as measured by Doppler, is 16.94mmHg. 14. There is no pulmonic regurgitation present. 15. The aortic root size is normal. 16. Normal inferior vena cava with normal inspiratory collapse consistent with estimated right atrial pressure of 5 mmHg. 17. There is no pericardial effusion. EDIPHONE OPERATOR: Sarita Garcia RDCS
[2018-09-03 16:56] LABS: Hemoglobin A1C 11.1 % (4.0-6.0)
[2018-09-03 17:24] LABS: Glucose,Whole Blood 209 mg/dL (75-99)
[2018-09-03] MEDS: CYCLOBENZAPRINE 10 MG TAB PO SCH (20:32)
[2018-09-03] MEDS: ENOXAPARIN 40 MG/0.4 ML SYRINGE SQ SCH (20:32)
[2018-09-03] MEDS: LORazepam 0.5 MG TAB PO SCH (20:32)
[2018-09-03] MEDS: ACETAMINOPHEN TAB 325 MG TAB PO PRN (20:33)
[2018-09-03 20:36] LABS: Glucose,Whole Blood 168 mg/dL (75-99)
[2018-09-04] MEDS: LISINOPRIL-HCTZ 10-12.5 MG 1 EACH TAB PO SCH ×3 (00:15→22:34)
[2018-09-04] MEDS: ASPIRIN 81 MG PO SCH ×2 (00:15→08:14)
[2018-09-04 02:22] LABS: Glucose,Whole Blood 163 mg/dL (75-99)
[2018-09-04 07:26] LABS: Glucose,Whole Blood 160 mg/dL (75-99)
--- NOTE | 2018-09-04 07:33 | PN ---
PROGRESS NOTE DATE OF SERVICE: 09/03/2018 PRESENTING COMPLAINT: Difficulty walking. INTERVAL HISTORY: This patient presented with nonketotic hyperglycemia and difficulty walking because of neuropathy. The patient did walk with physical therapy over 100 feet. Sugars are doing better, started on oral hypoglycemics. Care was discussed with the patient. REVIEW OF SYSTEMS: Done for constitutional, cardiovascular, GI, pulmonary; relevant findings as above. CURRENT MEDICATIONS: Current medications are reviewed that includes Prozac, Glucotrol, Glucophage. PHYSICAL EXAMINATION: On examination, temperature 98.5, pulse 88, respirations 16, blood pressure 162/71, pulse ox 92% on room air. GENERAL APPEARANCE: Lying in bed, awake. EYES: Pupils equal. Conjunctivae normal. NECK: JVD not raised. Mass not palpable. RESPIRATORY: Effort LUNGS: Clear. CARDIOVASCULAR: First and second sounds normal. No edema. ABDOMEN: Soft, nontender. Liver and spleen not palpable. PSYCHIATRY: Alert and oriented x3. Mood and affect normal. INVESTIGATIONS: Accu-Cheks 166, 199, 167. A 2-D echo shows preserved LV function and LVH. ASSESSMENT: 1. Severe peripheral neuropathy causing poor balance and frequent falls, probably from diabetes. 2. Diabetes mellitus type 2, uncontrolled with hyperglycemia. 3. Hyperlipidemia. 4. Essential hypertension. 5. History of colon cancer, status post chemo and surgery. 6. Gait dysfunction from peripheral neuropathy. 7. Hypertensive heart disease. PLAN: Will cut back the patient's glyburide to 2.5 mg before breakfast. Increase the metformin to 1000 mg twice a day. Also consult Dr. Maurer. Will change patient's Zestril to 10/12.5 twice a day. MMODL / IJN: [id number] /
[2018-09-04] MEDS: POTASSIUM CHLORIDE ER 20 MEQ TAB.ER PO SCH ×2 (08:13→22:33)
[2018-09-04] MEDS: metFORMIN 500 MG TAB PO SCH ×2 (08:13→17:32)
[2018-09-04] MEDS: PRAVASTATIN SODIUM 80 MG TAB PO SCH (08:13)
[2018-09-04] MEDS: FERROUS SULFATE 325 MG TAB PO SCH (08:13)
[2018-09-04] MEDS: FENOFIBRATE 160 MG TAB PO SCH (08:13)
[2018-09-04] MEDS: FLUoxetine HCL 20 MG CAP PO SCH (08:13)
[2018-09-04] MEDS: INSULIN ASPART (NovoLOG) 100 UNIT/ML VIAL SQ SCH ×3 (08:14→17:33)
[2018-09-04] MEDS: PYRIDOXINE 50 MG TAB PO SCH (08:16)
--- NOTE | 2018-09-04 10:21 | P.CONS ---
History of Present Illness - Chief Complaint Walking difficulty - History of Present Illness I had the opportunity to see patient for inpatient rehab consultation with regard to walking difficulty. Patient is unable to give history and answers all questions with yes. He was admitted to [facility] September 02 history of fall and inability to stand. Appears a been seen in consultation by oncology for colon c ancer. Cardiac echo demonstrates moderate concentric LVH as well as moderate mitral and tricuspid regurg. Chest x-ray consistent mild congestion, stable. PT reports minimal assistance for transfers and gait 100 feet with roller walker. OT reports minimal assistance for upper dressing and minimal to moderate assistance for lower dressing, minimal assistance for bathing and for transfers. Total assistance for toileting. Previous functional history: Unobtainable from patient. Review of Systems Review of systems: Really unobtainable from patient and gleaned from review of chart and physical exam. ENT: Denies sneezes or discharge. Eyes: Denies discharge or photophobia. Cardiac: Denies chest pain or palpitation. Pulmonary: Denies cough or shortness of breath. Gastrointestinal: Denies nausea, emesis, constipation, diarrhea. Genitourinary: Denies discharge or frequency. Musculoskeletal: Denies muscle or bone aches. Neurologic: Mental status confusion as well as left-sided weakness, more upper than lower. Endocrine: Denies shakes or sweats. Oncology: Denies cancers. Dermatologic: Denies rash, itching, pruritus. ALLERGY/immunology: Denies sneezes, rashes. Past Medical History Past Medical History: Cancer, Diabetes Mellitus, Hyperlipidemia, Hypertension Additional Past Medical History / Comment(s): Colon cancer with surgery and chemo, diabetic-diet controlled, neuropathy bilateral hands/feet, chronic lower abdominal pain-cause unknown, frequent nausea, constipation, anemia. History of Any Multi-Drug Resistant Organisms: None Reported Past Surgical History: Bowel Resection Additional Past Surgical History / Comment(s): COLONOSCOPY,COLON RESECTION Past Anesthesia/Blood Transfusion Reactions: No Reported Reaction Smoking Status: Former smoker - Past Family History Father Family Medical History: Diabetes Mellitus Additional Family Medical History / Comment(s): Father of diabetic complications at the age of 40 yrs. Mother Family Medical History: Diabetes Mellitus Additional Family Medical History / Comment(s): Mother from gangrene/diabetes at the age of 85yrs. Medications and Allergies Home Medications Medication Instructions Recorded Confirmed Type Docusate Sodium [Dok] 100 mg PO DAILY 12/24/17 09/02/18 History FLUoxetine HCL [PROzac] 60 mg PO DAILY 12/24/17 09/02/18 History Fenofibrate 160 mg PO DAILY 12/24/17 09/02/18 History LORazepam [Ativan] 0.5 mg PO HS 12/24/17 09/02/18 History Lidocaine-Prilocaine Cream [Emla 1 applic TOPICAL DAILY PRN 12/24/17 09/02/18 History Cream 2.5%/2.5%] Lisinopril [Zestril] 10 mg PO DAILY 12/24/17 09/02/18 History Pravastatin Sodium 80 mg PO DAILY 12/24/17 09/02/18 History Lactulose 10 gm PO Q6HR PRN 03/18/18 09/02/18 History Potassium Chloride [Klor-Con 20] 20 meq PO BID 04/01/18 09/02/18 History Aspirin 81 mg PO DAILY 09/02/18 09/02/18 History Cariprazine HCl [Vraylar] 1.5 mg PO DAILY 09/02/18 09/02/18 History Fexofenadine HCl [Bessy Allergy] 180 mg PO DAILY 09/02/18 09/02/18 History Fluticasone Nasal [place] [Flonase 2 spray EA NOSTRIL DAILY 09/02/18 09/02/18 History Nasal Merigold] Gabapentin [Neurontin] 200 mg PO BID 09/02/18 09/02/18 History Allergies Allergy/AdvReac Type Severity Reaction Status Date / Time latex Allergy Unknown Verified 09/02/18 07:29 Physical Exam Vitals: Vital Signs Temp Pulse Resp BP Pulse Ox 09/04/18 07:00 97.8 F 79 18 150/67 96 09/03/18 23:00 98.5 F 94 18 146/67 95 09/03/18 14:42 98.5 F 88 16 162/71 92 L Intake and Output 09/03/18 09/04/18 09/04/18 22:59 06:59 14:59 Intake Total 400 350 Balance 400 350 Intake: Oral 400 350 Other: Voiding Method Bedside Commode Diaper Incontinent # Voids 2 3 # Bowel Movements 1 3 Skin: Good color, texture, turgor. General: Medium build and comfortable appearance. Head: Normocephalic, atraumatic. Eyes: Symmetric. Pupils equal round. Ears: Symmetric. Hearing within normal limits. Mouth: Clear. Neck: Supple. Carotid without bruit. Cardiac: Regular rate and rhythm. Lungs: Clear anteriorly and posteriorly. Abdomen: Soft active nontender. Extremities: Normal tone. Neurological: Mental status: Confused and answers all questions with yes. Cranial nerves: Symmetric facial tone and trapezius. Motor: Active movement all 4 limbs but with weakness of left arm and hand, hand at best 3+/5. Sensation: Intact throughout. DTRs: Symmetric and equal throughout. Mobility: Requires physical assistance for bed mobility. Results CBC & Chem 7: 09/02/18 00:55 09/02/18 00:55 Labs: Abnormal Lab Results - Last 24 Hours (Table) 09/02/18 09/03/18 09/03/18 Range/Units 00:55 11:46 17:22 POC Glucose (mg/dL) 167 H 209 H (75-99) mg/dL Hemoglobin A1c 11.1 H (4.0-6.0) % 09/03/18 09/04/18 09/04/18 Range/Units 20:27 02:12 07:24 POC Glucose (mg/dL) 168 H 163 H 160 H (75-99) mg/dL Hemoglobin A1c (4.0-6.0) % Microbiology - Last 24 Hours (Table) 09/02/18 02:43 Blood Culture - Preliminary Blood No Growth after 48 hours Assessment and Plan (1) Weakness Current Visit: Yes Status: Acute Code(s): R53.1 - WEAKNESS SNOMED Code(s): 49091428 Plan: Impression: 1. Walking difficulty. 2. Weakness. 3. Confusion. 4. History Colon Cancer. 5. Diabetes. 6. Hypertension. 7. Dyslipidemia. Comments and plan: At this time PT and OT are ongoing. I have added speech therapy. Must determine discharge planning if there are any discharge supports. Patient currently quite confusing require very close 24/7 supervision and probably physical assist.
[2018-09-04 11:41] LABS: Glucose,Whole Blood 168 mg/dL (75-99)
[2018-09-04 16:51] LABS: Glucose,Whole Blood 149 mg/dL (75-99)
[2018-09-04] MEDS: ACETAMINOPHEN TAB 325 MG TAB PO PRN (17:32)
[2018-09-04 20:44] LABS: Glucose,Whole Blood 204 mg/dL (75-99)
[2018-09-04] MEDS: ENOXAPARIN 40 MG/0.4 ML SYRINGE SQ SCH (22:33)
[2018-09-04] MEDS: LORazepam 0.5 MG TAB PO SCH (22:34)
[2018-09-04] MEDS: CYCLOBENZAPRINE 10 MG TAB PO SCH (22:34)
--- NOTE | 2018-09-04 23:57 | PN ---
PROGRESS NOTE DATE OF SERVICE: 09/04/2018 PRESENTING COMPLAINT: Difficulty walking. INTERVAL HISTORY: Patient presented with non-ketotic hyperglycemia, difficulty walking from peripheral neuropathy. Awaiting acceptance from rehab. Sugars are doing much better. at the bedside. REVIEW OF SYSTEMS: Done for constitutional, cardiovascular, GI, pulmonary; relevant findings as above. CURRENT MEDICATIONS: Reviewed. PHYSICAL EXAMINATION: VITAL SIGNS: Temperature 98.4. Pulse 79, respirations 16, blood pressure 130/63. Pulse ox 96% on room air. GENERAL APPEARANCE: Lying in bed, awake. EYES: Pupils are equal. Conjunctivae normal. NECK: JVD not raised. Mass not palpable. RESPIRATORY: Effort normal. Lungs are clear. CARDIOVASCULAR: 1st and 2nd sounds normal. No edema. ABDOMEN: Soft, nontender. Liver and spleen not palpable. PSYCHIATRY: AO x3. INVESTIGATIONS: Accu-Cheks 168, 149, 204. ASSESSMENT: 1. Severe peripheral neuropathy causing poor balance and frequent falls from diabetes. 2. Diabetes mellitus 2 uncontrolled with hypoglycemia. 3. Hyperlipidemia. 4. Essential hypertension. 5. History of colon cancer status post chemo and surgery. 6. Dysfunction from peripheral neuropathy. 7. Hypertensive heart disease. PLAN: Continue current medication and treatment plan. Care was discussed with the patient's . Awaiting input from social worker assistant with whom I talked earlier about authorization for rehab. MMRINAL / JAMES: [id number] /
[2018-09-05 02:07] LABS: Glucose,Whole Blood 167 mg/dL (75-99)
[2018-09-05 07:12] LABS: Glucose,Whole Blood 169 mg/dL (75-99)
[2018-09-05] MEDS: FENOFIBRATE 160 MG TAB PO SCH (07:41)
[2018-09-05] MEDS: PRAVASTATIN SODIUM 80 MG TAB PO SCH (07:41)
[2018-09-05] MEDS: ASPIRIN 81 MG PO SCH (07:41)
[2018-09-05] MEDS: FLUoxetine HCL 20 MG CAP PO SCH (07:41)
[2018-09-05] MEDS: POTASSIUM CHLORIDE ER 20 MEQ TAB.ER PO SCH (07:41)
[2018-09-05] MEDS: metFORMIN 500 MG TAB PO SCH (07:41)
[2018-09-05] MEDS: PYRIDOXINE 50 MG TAB PO SCH (07:42)
[2018-09-05] MEDS: LISINOPRIL-HCTZ 10-12.5 MG 1 EACH TAB PO SCH (07:42)
[2018-09-05] MEDS: INSULIN ASPART (NovoLOG) 100 UNIT/ML VIAL SQ SCH ×2 (07:43→12:20)
[2018-09-05 08:40] VITALS: RESP 18
[2018-09-05 12:19] LABS: Glucose,Whole Blood 127 mg/dL (75-99)
[2018-09-05] MEDS: FERROUS SULFATE 325 MG TAB PO SCH (12:40)
--- NOTE | 2018-09-05 15:58 | DS ---
DISCHARGE SUMMARY DATE OF ADMISSION: 09/02/2018 DATE OF DISCHARGE: 09/05/2018 FINAL DIAGNOSES: 1. Acute non-ketotic hyperglycemia with a new diagnosis of diabetes mellitus, type 2. 2. Diabetes mellitus, type 2, uncontrolled, with hyperglycemia. 3. Severe peripheral neuropathy causing poor balance and frequent falls secondary to diabetes. 4. Hyperlipidemia. 5. Essential hypertension. 6. History of colon cancer, status post chemo and surgery. 7. Gait dysfunction from peripheral neuropathy. 8. Hypertensive heart disease. HOSPITAL COURSE: This patient presented with falls and poor balance. Patient has evidence of severe peripheral neuropathy, probably from poorly controlled diabetes. Sugars were running in the 500s when she first came in. The patient did have diabetic education, started on oral hypoglycemic. Blood sugars are better controlled. The patient's was educated about diabetes, too. She was seen by Physical Therapy. Patient is qualified for inpatient rehab. Patient did have a 2-D echocardiogram that shows preserved LV function. DISCHARGE MEDICATIONS: 1. Colace 100 mg a day. 2. Prozac 60 mg a day. 3. Tricor 160 mg a day. 4. Amlodipine 2.5% one topically daily p.r.n. 5. Pravastatin 80 mg p.o. daily. 6. Aspirin 81 mg daily. 7. Vraylar 1.5 mg p.o. daily. 8. DISCONTINUED: Bessy. 9. Tylenol 650 mg q.6 p.r.n. 10.Iron 325 p.o. daily. 11.NovoLog per sliding scale. 12.Zestoretic 03/29.5 one tablet p.o. b.i.d. 13.Melatonin 5 mg at bedtime. 14.Pyridoxine (B-6) 50 mg p.o. daily. 15.Glucotrol 2.5 mg p.o. with breakfast. 16.Metformin 1000 mg b.i.d. 17.Multivitamin 1 tablet p.o. daily. DISPOSITION: [facility]. Follow up with Dr. Novak after discharge from the [facility]. Follow up with Dr. Aggarwal in the [facility]. Follow up with Dr. Alejandra Dawson in one week. MMODL / IJN: [id number] /
[2018-09-05 16:04] VITALS: BP 110/62; PULSE 89; TEMP 97.8
== END 2018-09-05 17:09 | DRG 639 ==
LOC: EC 00:31 → 4MS4W 07:22
PROVIDERS: ADMIT Hospitalist; ATTEND Hospitalist
DX: E11.65 Type 2 diabetes mellitus with hyperglycemia (principal); E11.42 Type 2 diabetes mellitus with diabetic polyneuropathy; E78.5 Hyperlipidemia, unspecified; I08.1 Rheumatic disorders of both mitral and tricuspid valves; I11.9 Hypertensive heart disease without heart failure; R29.6 Repeated falls; Z74.1 Need for assistance with personal care; Z79.4 Long term (current) use of insulin; Z79.82 Long term (current) use of aspirin; Z79.899 Other long term (current) drug therapy; Z83.3 Family history of diabetes mellitus; Z85.038 Personal history of other malignant neoplasm of large intestine; Z85.118 Personal history of other malignant neoplasm of bronchus and lung; Z87.891 Personal history of nicotine dependence; Z92.21 Personal history of antineoplastic chemotherapy; Z91.040 Latex allergy status
CPT/HCPCS: 36415; 71045; 71046; 80053; 81003; 82009; 83036; 83880; 84484; 85025; 85610; 85730; 87040; 93306; 96365; 96366; 99285

== ENCOUNTER → 2018-11-21 | Outpatient (CLI) | payer BC ==
[2018-11-21 08:47] LABS: Blood Urea Nitrogen 21 mg/dL (7-17)
--- NOTE | 2018-11-21 18:02 | CT ---
EXAMINATION TYPE: CT ChestAbdPelvis w con DATE OF EXAM: 11/21/2018 INDICATION: Carcinoma of descending colon COMPARISON: 08/20/2018 CT DLP: 1187.3 mGycm CONTRAST: Performed with Oral Contrast and with IV Contrast, patient injected with 100 mL of Isovue 300. TECHNIQUE: Axial images at 5 mm thick sections. Reconstructed images in the coronal plane. Delayed images through the kidneys. FINDINGS: CT CHEST: Portion of the thyroid visualized appears somewhat prominent. No suspicious lung nodules or focal infiltrates are present. No enlarged mediastinal or hilar adenopathy is evident. The ascending aorta diameter at the level of the main pulmonary artery is 3.3 cm. The main pulmonary artery diameter at the bifurcation is 2.6 cm. Minimal coronary artery calcification is present. CT ABDOMEN: Liver: Mild fatty infiltration is within the liver. No discrete masses or cysts are evident. Very tin y hypodensities in the lateral left lobe liver too small to classify. This appears to be present prev iously. Spleen: Spleen is borderline enlarged at 13.5 cm. Normal less than 12.5 cm. Small splenule is medial to the spleen. Pancreas: Normal Adrenal glands: The adrenal glands are normal. Gallbladder: Normal Kidneys: No masses are evident. No hydronephrosis is present. No cysts are present. Delayed images were obtained through the kidneys, which remain unremarkable. Aorta: Vascular calcification is within the aorta. Inferior vena cava: Normal. CT PELVIS: Loops of bowel within the abdomen and pelvis are normal. There are loops of bowel which are incom pletely distended or lack oral contrast limiting their evaluation. The anastomosis at the splenic fle xure appears patent. Fecal debris is throughout the colon. There is some vague mesenteric inflammatory changes posterior to the distal descending colon present previously and stable. No suspicious changes to suggest obstruction. Appendix: Normal as visualized. Urinary bladder: Decompressed with limited evaluation Genitourinary structures: Uterus is normal. Adnexal regions are within normal limits. Osseous structures: No suspicious lytic or sclerotic lesions. IMPRESSIONS: 1. Mild splenomegaly. 2. Mild stable stranding through the mesentery posterior to the distal descending colon. 3. Moderate fecal retention. No obstruction is evident. The anastomosis is widely patent.
== END | disposition home or self-care (01) ==
LOC: RADCTMAIN 08:00
PROVIDERS: ATTEND Internal Medicine Hematology & Oncology
DX: R16.1 Splenomegaly, not elsewhere classified (principal); C18.6 Malignant neoplasm of descending colon
CPT/HCPCS: 82565; 84520; 71260; 74177; 36415; Q9967 ×2

== ENCOUNTER → 2019-02-19 | Outpatient (CLI) | payer BC ==
[2019-02-19 11:05] LABS: African American GFR (CKD) >90 (>60 ml/min/1.73 sqM); Blood Urea Nitrogen 28 mg/dL (7-17)
--- NOTE | 2019-02-20 07:50 | CT ---
EXAMINATION TYPE: CT ChestAbdPelvis w con DATE OF EXAM: 02/19/2019 INDICATION: Colon cancer, observe for mets COMPARISON: 11/21/2018 CT DLP: 1293.50 mGycm CONTRAST: Performed with Oral Contrast and with IV Contrast, patient injected with 100 ml mL of Isovue 300. TECHNIQUE: Axial images at 5 mm thick sections. Reconstructed images in the coronal plane. Delayed images through the kidneys. FINDINGS: CT CHEST: Portion of the thyroid visualized and is somewhat heterogenous. No suspicious lung nodules or focal infiltrates are present. No enlarged mediastinal or hilar adenopathy is evident. The ascending aorta diameter at the level of the main pulmonary artery is 3.0 cm. The main pulmonary artery diameter at the bifurcation is 2.[address] ABDOMEN: Liver: Recent mild fatty infiltration. Spleen: Normal Pancreas: Normal Adrenal glands: The adrenal glands are normal. Gallbladder: Normal Kidneys: No masses are evident. No hydronephrosis is present. No cysts are present. Delayed images were obtained through the kidneys, which remain unremarkable. Aorta: Vascular calcification is within the aorta. Inferior vena cava: Normal. CT PELVIS: Loops of bowel within the abdomen and pelvis are normal. There are loops of bowel which are incom pletely distended or lack oral contrast limiting their evaluation. The anastomosis at the splenic fle xure in the colon appears normal without stenosis. Mild fecal debris throughout the colon. Inflammato ry type changes posterior to the distal descending colon is stable. Appendix: Not visualized. Urinary bladder: Normal. Genitourinary structures: Uterus appears normal. Adnexal regions are normal. No free fluid is within the pelvis. Osseous structures: No suspicious lytic or sclerotic lesions. IMPRESSIONS: 1. No suspicious changes to suggest recurrent or metastatic disease. 2. Mild fecal retention. 3. Mild fatty traditional liver
== END | disposition home or self-care (01) ==
LOC: RADCTMAIN 09:47
PROVIDERS: ATTEND Internal Medicine Hematology & Oncology
DX: K59.09 Other constipation (principal); K76.0 Fatty (change of) liver, not elsewhere classified; C18.6 Malignant neoplasm of descending colon
CPT/HCPCS: 82565; 84520; 71260; 74177; 36415; Q9967

== ENCOUNTER → 2019-06-16 | Outpatient (CLI) | payer BC ==
[2019-06-16 09:33] LABS: African American GFR (CKD) >90 (>60 ml/min/1.73 sqM); Blood Urea Nitrogen 30 mg/dL (7-17); Non-African American GFR(CKD) >90 (>60 ml/min/1.73 sqM)
--- NOTE | 2019-06-16 11:56 | CT ---
EXAMINATION TYPE: CT ChestAbdPelvis w con DATE OF EXAM: 06/16/2019 COMPARISON: CT February 19, 2019 and older studies. HISTORY: Follow up colon cancer. CT DLP: 1348.2 mGycm. Automated Exposure Control for Dose Reduction was Utilized. CONTRAST: CT scan of the thorax, abdomen and pelvis is performed with IV Contrast, patient injected with 100 mL of Isovue 300. FINDINGS: LUNGS: Some motion artifact degradation makes evaluation suboptimal for subcentimeter nodularity. No definitive new nodules or masses. There is no pleural effusion or pneumothorax seen. The tracheobron chial tree is patent. MEDIASTINUM: There are no greater than 1 cm hilar or mediastinal lymph nodes. No pericardial effusi on is seen. Stable mild cardiomegaly. Coronary artery calcification redemonstrated which is noted ma rker for underlying coronary artery disease. OTHER: Stable right subclavian Mediport catheter. LIVER/GB: Liver remains low dense suggesting mild fatty infiltration. PANCREAS: No significant abnormality is seen. SPLEEN: Stable mild splenomegaly at 13.2 cm image 54 ADRENALS: No significant abnormality is seen. KIDNEYS: No significant abnormality is seen. BOWEL: Or a contrast established distal ileal level making evaluation for small suboptimal. No suspic ious small or large bowel dilatation. Surgical sutures from partial colectomy and reanastomosis redem onstrated there are axial image 79 left mid abdomen. Slightly redundant sigmoid colon. Normal-appeari ng appendix incidentally seen. GENITAL ORGANS: Anteverted uterus. Ovaries normal in size near axial image 111. LYMPH NODES: No greater than 1cm abdominal or pelvic lymph nodes are appreciated. OSSEOUS STRUCTURES: Moderate narrowing in both hip joints. Hemangioma involving L2 vertebra. OTHER: No significant additional abnormality is seen. IMPRESSION: No suspicious new mass or adenopathy to suggest local or metastatic neoplastic recurrence .
== END ==
LOC: RADCTMAIN 08:51
PROVIDERS: ATTEND Internal Medicine Hematology & Oncology
DX: C18.6 Malignant neoplasm of descending colon (principal)
CPT/HCPCS: 82565; 84520; 71260; 74177; 36415; Q9967

== ENCOUNTER → 2019-07-09 | Outpatient (CLI) | payer BC ==
--- NOTE | 2019-07-10 13:48 | MM ---
Reason for exam: screening (asymptomatic). Last mammogram was performed 9 years and 1 month ago. History: Patient is postmenopausal and is nulliparous. Physical Findings: A clinical breast exam by your physician is recommended on an annual basis and results should be correlated with mammographic findings. MG 3D Screening Mammo W/Cad Bilateral CC and MLO view(s) were taken. XCCL view(s) were taken of the right breast. Prior study comparison: June 08, 2010, mammogram, performed at [facility]. The breast tissue is heterogeneously dense. This may lower the sensitivity of mammography. Stable benign calcifications. There is chronic nodularity bilaterally, stable. No significant changes when compared with prior studies. ASSESSMENT: Benign, BI-RAD 2 RECOMMENDATION: Routine screening mammogram of both breasts in 1 year.
== END | disposition home or self-care (01) ==
LOC: RADMAMWWP 07:48
PROVIDERS: ATTEND Family Medicine
DX: Z12.31 Encounter for screening mammogram for malignant neoplasm of breast (principal); Z85.038 Personal history of other malignant neoplasm of large intestine
CPT/HCPCS: 77063; 77067

== ENCOUNTER 2021-09-04 14:47 | Emergency (ER) | payer BC, MEDICARE ==
[2021-09-04 15:20] VITALS: BP 128/66; PULSE 89; RESP 16; TEMP 98
--- NOTE | 2021-09-04 15:40 | XR ---
EXAMINATION TYPE: XR finger RT DATE OF EXAM: 09/04/2021 COMPARISON: NONE HISTORY: Laceration injury with pain TECHNIQUE: 3 views right thumb. FINDINGS: Overlying gauze and/or bandage material with soft tissue defect distal aspect of the first distal phalanx. No acute displaced fracture is seen. Mild/moderate narrowing and mild spurring first interphalangeal joint. No definitive suspicious radiodense foreign body though there is some limitati on due to overlying bandage and/or gauze material. IMPRESSION: As above.
[2021-09-04] MEDS ORDERED: GELATIN SPONGE,ABSORB (SMALL) 1 EACH SPONGE TOPICAL STA (15:52)
[2021-09-04] MEDS ORDERED: DIPH,PERTUS(ACELL)TETVAC-LF 0.5 ML VIAL IM ONE (15:52)
--- NOTE | 2021-09-04 15:55 | ED ---
Wound/Laceration HPI - General Chief Complaint: Wound/Laceration Stated Complaint: R hand lac. Time Seen by Provider: 09/04/21 15:47 Source: patient, RN notes reviewed Mode of arrival: ambulatory Limitations: no limitations - History of Present Illness Initial Comments: This is a 66-year-old female presents emergency department she landed laceration to her right thumb. She is using a mandolin slicer states that she cause a laceration, skin avulsion to her thumb. She states her last tetanus was over 10 years ago. She was seen at urgent care unable to stop the bleeding so they provided, the emergency department. Patient states that she put pressure on bleeding does stop. No paresthesias patient was not complaints. - Related Data Home Medications Medication Instructions Recorded Confirmed Docusate Sodium [Dok] 100 mg PO DAILY 12/24/17 09/02/18 FLUoxetine HCL [PROzac] 60 mg PO DAILY 12/24/17 09/02/18 Fenofibrate 160 mg PO DAILY 12/24/17 09/02/18 Lidocaine-Prilocaine Cream [Emla 1 applic TOPICAL DAILY PRN 12/24/17 09/02/18 Cream 2.5%/2.5%] Pravastatin Sodium 80 mg PO DAILY 12/24/17 09/02/18 Aspirin 81 mg PO DAILY 09/02/18 09/02/18 Cariprazine HCl [Vraylar] 1.5 mg PO DAILY 09/02/18 09/02/18 Previous Rx's Medication Instructions Recorded Acetaminophen Tab [Tylenol] 650 mg PO Q6HR PRN tab 09/05/18 Ferrous Sulfate [Iron (65 MG 325 mg PO 1200 tab 09/05/18 Elemental)] INSULIN ASPART (NovoLOG) [NovoLOG 0 unit SQ AC-TID vial 09/05/18 (formulary)] Lisinopril-Hctz 10-12.5 mg 1 each PO BID tab 09/05/18 [Zestoretic 10-12.5] Melatonin 5 mg PO HS #1 tablet 09/05/18 Multivitamin [Multivitamins Adult 1 each PO DAILY #1 tablet 09/05/18 Gummies] Pyridoxine [Vitamin B-6] 50 mg PO DAILY tab 09/05/18 glipiZIDE [Glucotrol] 2.5 mg PO AC-BRKFST tab 09/05/18 metFORMIN HCL [Glucophage] 1,000 mg PO BID #1 tab 09/05/18 Allergies Allergy/AdvReac Type Severity Reaction Status Date / Time latex Allergy Unknown Verified 09/04/21 15:20 Review of Systems ROS Statement: Those systems with pertinent positive or pertinent negative responses have been documented in the HPI. ROS Other: All systems not noted in ROS Statement are negative. Past Medical History Past Medical History: Cancer, Diabetes Mellitus, Hyperlipidemia, Hypertension Additional Past Medical History / Comment(s): Colon cancer with surgery and chemo, diabetic-diet controlled, neuropathy bilateral hands/feet, chronic lower abdominal pain-cause unknown, frequent nausea, constipation, anemia. History of Any Multi-Drug Resistant Organisms: None Reported Past Surgical History: Bowel Resection Additional Past Surgical History / Comment(s): COLONOSCOPY,COLON RESECTION Past Anesthesia/Blood Transfusion Reactions: No Reported Reaction Past Psychological History: Anxiety, Depression Smoking Status: Never smoker Past Alcohol Use History: None Reported Past Drug Use History: None Reported - Past Family History Father Family Medical History: Diabetes Mellitus Additional Family Medical History / Comment(s): Father of diabetic complications at the age of 40 yrs. Mother Family Medical History: Diabetes Mellitus Additional Family Medical History / Comment(s): Mother from gangrene/diabetes at the age of 85yrs. General Exam Limitations: no limitations General appearance: alert, in no apparent distress Head exam: Present: atraumatic, normocephalic, normal inspection Neck exam: Present: normal inspection. Absent: tenderness, meningismus, lymphadenopathy Respiratory exam: Present: normal lung sounds bilaterally. Absent: respiratory distress, wheezes, rales, rhonchi, stridor Cardiovascular Exam: Present: regular rate, normal rhythm, normal heart sounds. Absent: systolic murmur, diastolic murmur, rubs, gallop, clicks Extremities exam: Present: other (Right thumb there is a skin avulsion on the palmar aspect of the finger, mild bleeding noted, neurovascular intact for range of motion) Course Vital Signs 09/04/21 15:16 Temperature 98 F Pulse Rate 89 Respiratory 16 Rate Blood Pressure 128/66 O2 Sat by Pulse 97 Oximetry Medical Decision Making - Medical Decision Making 66-year-old presents for skin avulsion to her thumb. Her tetanus is updated. Leading subsided after Gelfoam was applied, dressing was applied with no recurrent bleeding patient was monitored. Patient discharged stable condition with follow-up. Disposition Clinical Impression: Avulsion of skin of right thumb Disposition: HOME SELF-CARE Condition: Stable Instructions (If sedation given, give patient instructions): Skin Avulsion (ED) Additional Instructions: Please return to the emergency department for any worsening, change in symptoms or any other concerns Is patient prescribed a controlled substance at d/c from ED?: No Referrals: Aguilar Novak MD [Primary Care Provider] - 1-2 days Tom Cristina DO [Doctor of Osteopathic Medicine] - 1-2 days
== END 2021-09-04 16:30 | disposition home or self-care (01) ==
LOC: EC 14:47
DX: S61.001A Unspecified open wound of right thumb without damage to nail, initial encounter (principal); I10 Essential (primary) hypertension; E11.9 Type 2 diabetes mellitus without complications; Z91.040 Latex allergy status; W27.4XXA Contact with kitchen utensil, initial encounter
CPT/HCPCS: 90471; 90715; 99283

== ENCOUNTER → 2024-09-08 | Outpatient (CLI) | payer MEDICARE ==
[2024-09-08 15:35] LABS: ALT 34 U/L (8-44); AST 24 U/L (13-35); Albumin 4.4 g/dL (3.8-4.9); Alkaline Phosphatase 41 U/L (41-126); BUN/Creat Ratio 33.55 Ratio (12.00-20.00); Blood Urea Nitrogen 36.9 mg/dL (9.0-27.0); Calcium 9.7 mg/dL (8.7-10.3); Carbon Dioxide 25.4 mmol/L (21.6-31.8); Chloride 101 mmol/L (96-109); Chol/HDL Ratio 4.65 Ratio; Globulin 2.2 g/dL (1.6-3.3); Glucose 105 mg/dL (70-110); LDL Cholesterol,Calculated 97.4 mg/dL (0.0-131.0); Potassium 4.2 mmol/L (3.5-5.5); Sodium 139 mmol/L (135-145); Total Bilirubin 0.3 mg/dL (0.3-1.2); Total Protein 6.6 g/dL (6.2-8.2)
== END | disposition home or self-care (01) ==
LOC: LABWHC1 10:32
PROVIDERS: ATTEND Family Medicine
DX: E11.9 Type 2 diabetes mellitus without complications (principal)
CPT/HCPCS: 36415; 80053; 80061; 83036